=== PATIENT | male | born 1980 | race Caucasian/White ===

== ENCOUNTER 2023-08-31 22:01 | Emergency (ER) | payer OTHER ==
[2023-08-31 22:09] VITALS: BP 134/96; PULSE 90; RESP 19; TEMP 98.3; BMI 29.0
[2023-08-31 22:34] LABS: EOS % 1.1 % (0-4.5); HEMATOCRIT 42.8 % (35.4-49); HEMOGLOBIN 14.1 GM/dL (11.7-16.9); LYMPH % 35.1 % (8-40); MCH 27.8 pg (25.7-33.7); MEAN CELL VOLUME 84.2 fl (80-96); MEAN PLT VOLUME 8.1 fl (7.5-11.1); MONO % 7.4 % (3.8-10.2); NEUT % 56.4 % (42.8-82.8); PLATELET COUNT 253 10^3/uL (134-434); RBC 5.09 M/mm3 (4.00-5.60); RDW 12.8 % (11.9-15.9); WHITE BLOOD COUNT 8.6 K/mm3 (4.0-10.0)
[2023-08-31 22:48] LABS: POTASSIUM 3.8 mmol/L (3.5-5.1)
[2023-08-31 22:50] LABS: ALBUMIN 4.4 g/dl (3.4-5.0); BLOOD UREA NITROGEN 12.8 mg/dL (7-18); CALCIUM 9.8 mg/dL (8.5-10.1)
[2023-08-31 22:53] LABS: PHOSPHOROUS 4.1 mg/dL (2.5-4.9)
[2023-08-31 22:56] LABS: BILIRUBIN,TOTAL 0.4 mg/dL (0.2-1)
[2023-08-31 23:48] LABS: HIV INTERPRETATION NEGATIVE (NEGATIVE)
== END 2023-08-31 23:55 | disposition home or self-care (01) ==
LOC: JER 22:01
DX: S61.233A Puncture wound without foreign body of left middle finger without damage to nail, initial encounter (principal); W46.1XXA Contact with contaminated hypodermic needle, initial encounter
CPT/HCPCS: 36415; 80053; 82977; 84100; 85025; 86704; 86803; 87340; 87389; 87517; 99283-25